=== PATIENT | female | born 1930 | race Caucasian/White ===

== ENCOUNTER 2017-09-07 12:43 | Inpatient (IN) | payer MEDICARE, OTHER ==
--- NOTE | 2017-09-07 13:20 | ED Physician Chart ---
ED Chief Complaint/HPI - Patient Information Date Seen:: 09/07/17 Time Seen:: 13:09 Chief Complaint:: NAUSEA X 2 MO AND ABD PAIN X3 DAYS History of Present Illness:: THIS PATIENT HAS HAD NAUSEA FOR 2 MONTHS WITHOUT ASSOCIATED VOMITING. SHE DENIES ANY RECENT DIARRHEA OR CONSTIPATION. SHE HAS BEEN EXPERIENCING MILD INTERMITTENT PAINS IN THE LEFT LOWER QUAD WHICH RADIATE INTO THE LT LOWER BACK FOR 3 DAYS. SHE RATES THE PAIN 2 /10 SEVERITY AND EATING GREASY FOODS MAKE THE PAIN WORSE. NO RELIEVING FACTORS. THE PT HAS ALSO HAD A NON-PRODUCTIVE COUGH FOR 2 MONTHS. SHE ALSO CONPLAINS OF PAIN IN THE RT SHOULD AND HAS BEEN TOLD SHE HAS ARTHRITIS THERE. SOME TIME AGO THE PT WAS DIAGNOSED HAVING A GASTRIC ULCE BY HER DOCTOR FROM THE PAST. SHE HAS FREQUENT EPISODES OF VOIDING LARGE VOLUMES OF URINE. PT DENIES DYSURIA AND HEMATURIA. THE PT HAS GENERALIZED MUSCLE AND BONE PAINS WITHOUT ASSOCIATED FEVER OR CHILLS. Allergies:: Allergies Allergy/AdvReac Type Severity Reaction Status Date / Time aspirin Allergy Verified 09/07/17 13:02 codeine Allergy Verified 09/07/17 13:02 Penicillins Allergy Verified 09/07/17 13:02 Historian:: Patient Review:: Nurse's Note Reviewed ED Review of Systems - Review of Systems General/Constitutional: No fever, No chills, Weakness Skin: No skin lesions, No rash Head: No headache, No light-headedness Eyes: No loss of vision, No diplopia ENT: No earache, No sore throat, No tinnitus Neck: No neck pain, No swelling, No thyromegaly, No stiffness, No mass noted Cardio Vascular: No chest pain, No edema Pulmonary: No SOB, Cough, No sputum, No wheezing GI: Nausea, No vomiting, No diarrhea, Pain, No hematochezia, No constipation, No hematemesis G/U: No dysuria, Frequency, No hematuria, No nacturia Crust Sorter: No abnormal vaginal bleed Musculoskeletal: Bone or joint pain, Muscle pain Endocrine: Polyuria, No polydipsia Psychiatric: Depression, No suicidal ideation, No homicidal ideation Hematopoietic: No bruising, No lymphadenopathy Allergic/Immuno: No urticaria, No angioedema Neurological: No syncope, No focal symptoms, Weakness, No headache, No seizure, No confusion, No vertigo Family Medical History - Family Member Mother Sister History Unknown: Yes ED Physical Exam - Physical Examination General/Constitutional: Awake, Well-developed, well-nourished, Alert Other Gen/Cons comments:: MILD DISTRESS FROM COMPLAINED OF ABD PAIN AND NAUSEA. Head: Atraumatic Eyes: Lids, conjuctiva normal, PERRL, EOMI Other Eyes comments:: VERY PROMINANT ARCUS BOTH EYES. Skin: Nl inspection, No rash, No ecchymosis Other Skin comments:: TATOOS OVER RT SIDE OF FACE TO COVER UP BROWN SPOTS. ENMT: External ears, nose nl, TM canals nl, Nasal exam nl, Lips, teeth, gums nl , Oropharynx nl, Tonsils nl Other ENMT comments:: Surprisingly good teeth. Neck: Nontender, No JVD, No nuchal rigidity, No bruit, No mass, No stridor Respiratory: Nl effort/Exclusion, Clear to Auscultation, No Wheeze/Rhonchi/Rales Cardio Vascular: No murmur, gallop, rubs, NL S1 S2 Other Cardio Vascular comments:: Good peripheral pulses in all 4 extremities. GI: No organomegaly, Normal BS's, Nondistended, No mass/bruits, No McBurney tenderness Other GI comments:: Patient has a hernia below the umbilicus on the right side. : No CVA tenderness Extremities: No tenderness or effusion, Full ROM, normal strength in all extremities, No edema Neuro/Psych: Alert/oriented, Normal sensory exam, Normal motor strength, Judgement/insight normal, Mood normal, No focal deficits Other Neuro/Psych comments:: Patient uses walker to get around in the gait was not tested in the emergency department. ED Labs/Radiology/EKG Results - Lab Results Results: Laboratory Results - last 24 hr 09/08/17 09/08/17 09/08/17 05:55 05:55 05:55 WBC 5.0 D RBC 3.55 L Hgb 11.4 L Hct 33.4 L MCV 94.2 MCH 32.2 H MCHC Differential 34.2 RDW 12.1 Plt Count 207 MPV 8.1 Neutrophils % 46.0 Lymphocytes % 33.6 Monocytes % 13.0 H Eosinophils % 7.0 H Basophils % 0.4 Sodium 137 Potassium 4.2 Chloride 104 Carbon Dioxide 25.6 Anion Gap 11.6 BUN 21 Creatinine 0.8 Est GFR ( Amer) TNP Est GFR (Non-Af Amer) TNP BUN/Creatinine Ratio 26.3 Glucose 108 H Calcium 9.5 Triglycerides 107 Cholesterol 213 H LDL Cholesterol Direct 146 HDL Cholesterol 57 TSH 6.51 H LABORATORY INTERPRETATION: THE CBC WAS UNREMARKABLE WITH NO LEUKOCYTOSIS OR SIGNIFICANT ANEMIA. LABORATORY STUDIES SHOWED ELECTROLYTES ALL WITHIN NORMAL LIMITS INCLUDING THE SODIUM, POTASSIUM, CHLORIDE, BICARB AND ANION GAP. PATIENT' S KIDNEY FUNCTION WAS NORMAL. GLUCOSE WAS MINIMALLY ELEVATED AT 108. RADIOLOGY RESULTS: CT SCAN OF THE ABDOMEN WAS POSITIVE FOR DIVERTICULOSIS WITH NO DIVERTICULITIS. NO ACUTE SURGICAL PROBLEMS NOTED. ED Assessment - Assessment General Assessment: CASE SUMMARY: THIS 87-YEAR-OLD FEMALE PRESENTS WITH TWO MONTHS OF NAUSEA AND NO ASSOCIATED VOMITING OR DIARRHEA. OVER THE PAST THREE DAYS SHE HAS DEVELOPED MILD ABDOMINAL DISCOMFORT IN THE LEFT LOWER QUADRANT. ON PHYSICAL EXAMINATION SHE HAS MILD TENDERNESS WITH NO ASSOCIATED REBOUND REGARDING IN THE LEFT LOWER QUADRANT. THERE IS A NON-INCARCERATED HERNIA RIGHT OF THE UMBILICUS. I'LL SOUNDS WERE NORMAL AND THERE WAS NO DISTENTION OR MASSES NOTED. CT SCAN OF THE ABDOMEN WAS POSITIVE FOR DIVERTICULOSIS WITH NO DIVERTICULITIS OR OTHER ACUTE SURGICAL PROBLEMS. PATIENT HAD A CBC WITH NO LEUKOCYTOSIS AND NO SIGNIFICANT ANEMIA. THE CASE WAS DISCUSSED WITH DR. HSIEH AND THE PATIENT WILL BE ADMITTED TO A MEDICAL BED FOR FURTHER DIAGNOSTIC EVALUATION AND TREATMENT INDICATED. MDM DDX ABD PAIN IN AN ELDERLY FEMALE: NOT BOWEL PERFORATION BASED ON NEGATIVE CT SCAN. NOT ISCHEMIC BOWEL DISEASE BASED ON CT SCAN OF THE ABDOMEN AND THE PATIENT'S RELATIVELY MILD ABDOMINAL PAIN. FURTHERMORE THERE WAS NO LEUKOCYTOSIS. NO DIVERTICULITIS BASED ON NEGATIVE CT SCAN. NO INCARCERATED HERNIAS BASED ON NEGATIVE CT SCAN. MYOCARDIAL ISCHEMIA UNLIKELY BASED ON THE LOCATION OF THE PATIENT'S PAIN AND TENDERNESS. ED Septic Shock - . Is Septic Shock (SBP<90, OR Lactate>4 mmol\L) present?: No ED Reassessment (Disposition) - Reassessment Reassessment Condition:: Unchanged - Diagnosis Diagnosis:: DIVERTICULOSIS,, ANXIETY, DEPRESSION, INSOMNIA. - Patient Disposition Discharge/Transfer:: Acute Care w/in this hosp Accepting Physician:: DR. GR ED Discharge Plan - Patient Disposition Admit/Discharge/Transfer: Acute Care w/in this hosp Condition at Disposition: Stable
[2017-09-07] MEDS ORDERED: Sodium Chloride 0.9% 1,000 ML IV ONE (14:15)
[2017-09-07 14:41] LABS: % BASOPHILS 0.3 % (0.0-2.0); % EOSINOPHILS 5.9 % (0.0-5.0); % LYMPHOCYTES 30.9 % (20.0-50.0); % MONOCYTES 11.7 % (2.0-10.0); % NEUTROPHILS 51.2 % (40.0-80.0); EOSINOPHILE ABSOLUTE 0.4 Th/cmm (0.1-0.4); HEMATOCRIT 36.7 % (41.0-60); HEMOGLOBIN 12.5 gm/dL (12-16); LYMPHOCYTE ABSOLUTE 2.3 Th/cmm (1.5-3.0); MEAN CELL VOLUME 95.3 fl (81-100); MEAN CORPUSCULAR HEMOGLOBIN 32.4 pg (27.0-31.0); MEAN PLATELET VOLUME 7.9 fl; MONOCYTE ABSOLUTE 0.9 Th/cmm (0.3-1.0); NEUTROPHILE ABSOLUTE 3.7 Th/cmm (1.8-8.0); PLATELET COUNT 210 Th/cmm (150-400); RED BLOOD COUNT 3.85 Mil/cmm (3.80-5.20); RED CELL DISTRIBUTION WIDTH 12.3 % (11.5-20.0); WHITE BLOOD COUNT 7.3 Th/cmm (4.8-10.8)
[2017-09-07 15:00] LABS: URINE MICROSCOPIC INDICATED? YES; URINE SOURCE RANDOM
[2017-09-07 15:05] LABS: URINE BILIRUBIN NEGATIVE (NEGATIVE); URINE BLOOD NEGATIVE (NEGATIVE); URINE GLUCOSE (UA) NEGATIVE (NEGATIVE); URINE KETONE NEGATIVE (NEGATIVE); URINE LEUKOCYTE ESTERASE NEGATIVE (NEGATIVE); URINE NITRATE NEGATIVE (NEGATIVE); URINE PROTEIN NEGATIVE (NEGATIVE); URINE UROBILINOGEN 0.2 E.U./dL (0.2 - 1.0)
[2017-09-07 15:19] LABS: ALB/GLOB RATIO 1.6 (1.0-1.8); ALBUMIN 4.4 gm/dL (3.7-5.3); ALKALINE PHOSPHATASE 67 U/L (34-104); ANION GAP 12.5 (7.0-16.0); BILIRUBIN,TOTAL 0.3 mg/dL (0.3-1.0); BUN - UREA NITROGEN 19 mg/dL (7-25); CALCIUM SERUM 10.1 mg/dL (8.6-10.3); CARBON DIOXIDE 23.6 mEq/L (21.0-31.0); CHLORIDE 100 mEq/L (98-107); CREATININE - SERUM 0.7 mg/dL (0.6-1.2); GLUCOSE 96 mg/dL (70-105); LIPASE 27 U/L (11-82); POTASSIUM SERUM 4.1 mEq/L (3.5-5.1); SGOT 22 U/L (13-39); SGPT/ALT 14 U/L (7-52); SODIUM SERUM 132 mEq/L (136-145); TOTAL PROTEIN,SERUM 7.1 gm/dL (6.0-8.3)
[2017-09-07 15:27] LABS: URINE CLARITY CLEAR (CLEAR); URINE COLOR YELLOW
[2017-09-07 15:29] LABS: URINE BACTERIA NONE SEEN /hpf (NONE SEEN); URINE EPITHELIAL CELLS NONE SEEN /lpf (FEW); URINE RBC NONE SEEN /hpf (0-5); URINE WBC NONE SEEN /hpf (0-5)
[2017-09-07] MEDS ORDERED: IOHEXOL 300mgI/mL 100 ML VIAL ONE (18:03)
[2017-09-07] MEDS ORDERED: Acetaminophen 500 MG TAB PO PRN (19:13)
[2017-09-07] MEDS ORDERED: Magnesium Hydroxide (MOM) 30 mL UDC PO PRN (19:13)
[2017-09-07] MEDS ORDERED: Non-Formulary Item 1 EA (Melatonin [Melatonin] 6 MG) PO PRN (19:13)
[2017-09-07] MEDS ORDERED: Non-Formulary Item 1 EA (Ondansetron Hcl [Zofran*] 4 MG) PO PRN (19:13)
[2017-09-07] MEDS ORDERED: Fleet Enema 135 mL RC PRN (19:13)
[2017-09-07] MEDS: Polyvinyl Alcohol Ophth Soln 15 mL Bottle EACH EYE SCH (22:09)
[2017-09-07] MEDS: Acetaminophen 500 MG TAB PO PRN (22:58)
[2017-09-07] MEDS: D5-0.45NS 1,000 ML IV SCH (23:52)
[2017-09-08 01:03] VITALS: BP 178/71
[2017-09-08 06:38] LABS: % BASOPHILS 0.4 % (0.0-2.0); % LYMPHOCYTES 33.6 % (20.0-50.0); EOSINOPHILE ABSOLUTE 0.3 Th/cmm (0.1-0.4); HEMATOCRIT 33.4 % (41.0-60); HEMOGLOBIN 11.4 gm/dL (12-16); LYMPHOCYTE ABSOLUTE 1.7 Th/cmm (1.5-3.0); MEAN CELL VOLUME 94.2 fl (81-100); MEAN CORPUSCULAR HEMOGLOBIN 32.2 pg (27.0-31.0); MEAN CORPUSCULAR HGB CONC 34.2 pg (28.0-36.0); MEAN PLATELET VOLUME 8.1 fl; MONOCYTE ABSOLUTE 0.6 Th/cmm (0.3-1.0); NEUTROPHILE ABSOLUTE 2.4 Th/cmm (1.8-8.0); PLATELET COUNT 207 Th/cmm (150-400); RED BLOOD COUNT 3.55 Mil/cmm (3.80-5.20); RED CELL DISTRIBUTION WIDTH 12.1 % (11.5-20.0)
[2017-09-08] MEDS: Levothyroxine 0.05 Mg Tab PO SCH (06:44)
[2017-09-08 07:11] LABS: ANION GAP 11.6 (7.0-16.0); BUN - UREA NITROGEN 21 mg/dL (7-25); CALCIUM SERUM 9.5 mg/dL (8.6-10.3); CARBON DIOXIDE 25.6 mEq/L (21.0-31.0); CHLORIDE 104 mEq/L (98-107); CHOLESTEROL 213 mg/dL (<200); CREATININE - SERUM 0.8 mg/dL (0.6-1.2); GLUCOSE 108 mg/dL (70-105); HDL -HIGH DENSITY LIPOPROTEIN 57 mg/dL (23-92); POTASSIUM SERUM 4.2 mEq/L (3.5-5.1); SODIUM SERUM 137 mEq/L (136-145); TRIGLYCERIDES 107 mg/dL (<150)
--- NOTE | 2017-09-08 07:58 | Diagnostic Imaging Report ---
CT abdomen and pelvis with intravenous contrast Indication: Right upper quadrant pain Comparison: None, Technique: Axial images were obtained from the lung bases to the bilateral proximal femurs with IV contrast. Coronal reconstructions were made. total DLP: 435, CTDI10.4 FINDINGS: Hypoventilatory and atelectatic changes of the lung bases are noted. There is focal fat-containing diaphragmatic hernia seen along the left posterior hemidiaphragm. No evidence of focal hepatic lesions. No radiopaque gallstones identified. No focal splenic lesions. Splenic artery calcifications are noted. No focal pancreatic or adrenal lesions. 1.2 cm right renal cyst is noted. Additional low-density lesions are seen to small to characterize but suggestive of cysts. No hydronephrosis. Mildly distended urinary bladder is noted. Diverticulosis is noted without evidence of diverticulitis. Appendix is not well-visualized. Nonspecific fluid-filled loops of small bowel are noted without evidence of bowel obstruction. There is minimal haziness of the mesenteric fat planes. Diffuse atherosclerotic vascular disease is seen with tortuous aorta. No evidence of an aneurysm. Broad-based left posterior flank fat-containing hernia is noted. Degenerative changes of the spine and pelvis are noted with mild scoliosis. IMPRESSION: Diverticulosis without evidence of diverticulitis. Minimal haziness of the mesenteric fat planes. Underlying mild mesenteritis cannot be excluded. No evidence of bowel obstruction. Distended urinary bladder. No hydronephrosis. Fat-containing left posterior diaphragmatic hernia. There is also an additional broad-based left posterior flank fat-containing hernia. Diffuse atherosclerotic vascular disease.
[2017-09-08] MEDS ORDERED: IBUPROFEN 200 MG PO SCH (09:00)
[2017-09-08] MEDS ORDERED: Non-Formulary Item 1 EA (Cranberry Fruit Concentrate [Cranberry] 450 MG) PO SCH (09:00)
[2017-09-08] MEDS: Polyvinyl Alcohol Ophth Soln 15 mL Bottle EACH EYE SCH ×3 (09:05→21:18)
[2017-09-08] MEDS ORDERED: VTE Chemical Prophylaxis Screen/Admission MC PRN (11:05)
--- NOTE | 2017-09-08 11:57 | History and Physical ---
History of Present Illness - HPI Chief Complaint: abdominal pain HPI: This is a 87 year old female who is a resident of [facility] who has a 2 month history of nausea and abdominal pain. According to daughter at bedside patient has been having intermittent left lower quadrant pain that is worse when she bends down, patient denies any constipation or any diarrhea at the snf. Due to the increase in abdominal pain patient is now admitted to the medsurg unit. . Vital Signs: Last Vital Signs Temp 96.4 F 09/08/17 08:35 Pulse 53 09/08/17 08:35 Resp 20 09/08/17 10:14 BP 129/57 09/08/17 08:59 Pulse Ox 99 09/08/17 08:35 Past Medical History Other History: pna weakness cad bradycardia gerd Family Medical History - Family Member Mother Sister History Unknown: Yes Social History Smoke: No Alcohol: None Drugs: None Lives: [facility] - Medications Home Medications: Home Medication Medication Instructions Recorded Type Acetaminophen [Pain Relief] 1,000 mg PO Q4H PRN 09/07/17 History Cranberry Fruit Concentrate 450 mg PO DAILY 09/07/17 History [Cranberry] Dextran 70/Hypromellose 1 each OP TID 09/07/17 History [Artificial Tears] Famotidine [Pepcid] 20 mg PO DAILY 09/07/17 History Fleet Enema [Fleet Enema] 135 ml RC Q48H PRN 09/07/17 History Fluoxetine HCl [Prozac] 20 mg PO DAILY 09/07/17 History Gabapentin [Neurontin] 100 mg PO TID 09/07/17 History Ibuprofen 200 mg PO BID 09/07/17 History Lamotrigine 25 mg PO DAILY 09/07/17 History Levothyroxine [Synthroid] 0.05 mg PO QDAC 09/07/17 History Loratadine [Claritin] 10 mg PO DAILY PRN 09/07/17 History Magnesium Hydroxide [Milk of 30 ml PO DAILY PRN 09/07/17 History Magnesia] Melatonin 6 mg PO HS PRN 09/07/17 History Metoprolol Succinate [Toprol Xl] 25 mg PO DAILY 09/07/17 History Mylanta 30 ml PO Q6H PRN 09/07/17 History Ondansetron HCl [Zofran*] 4 mg PO Q6H PRN 09/07/17 History - Allergies Allergies/Adverse Reactions: Allergies Allergy/AdvReac Type Severity Reaction Status Date / Time aspirin Allergy Verified 09/07/17 13:02 codeine Allergy Verified 09/07/17 13:02 Penicillins Allergy Verified 09/07/17 13:02 Review of Systems - Review of Systems Constitutional: Report: No Significant Eyes: Report: No Significant ENT: Report: No Significant Respiratory: Report: No Significant Cardiovascular: Report: No Significant Gastrointestinal: Report: Abdominal Pain Genitourinary: Report: No Significant Musculoskeletal: Report: No Significant Skin: Report: No Significant Neurological: Report: No Significant Physical Exam - Physical Exam HEENT: Report: Ears Nose Throat within normal limits Neck: Report: Within normal limits Cardiovascular Systems: Report: +s1/s2 noted, Regular, Rate and Rhythm Respiratory: Report: Breath Sounds are within normal limits Abdomen: Report: Bowel Sounds are within normal limits, Other (mildly distended) Skin: Report: Color of skin is within normal limits Neuro/Psych: Report: Mood affect is within normal limits - Lab Results All Lab Results last 24 hours: Laboratory Results - last 24 hr 09/08/17 09/08/17 09/08/17 05:55 05:55 05:55 WBC 5.0 D RBC 3.55 L Hgb 11.4 L Hct 33.4 L MCV 94.2 MCH 32.2 H MCHC Differential 34.2 RDW 12.1 Plt Count 207 MPV 8.1 Neutrophils % 46.0 Lymphocytes % 33.6 Monocytes % 13.0 H Eosinophils % 7.0 H Basophils % 0.4 Sodium 137 Potassium 4.2 Chloride 104 Carbon Dioxide 25.6 Anion Gap 11.6 BUN 21 Creatinine 0.8 Est GFR ( Amer) TNP Est GFR (Non-Af Amer) TNP BUN/Creatinine Ratio 26.3 Glucose 108 H Calcium 9.5 Triglycerides 107 Cholesterol 213 H LDL Cholesterol Direct 146 HDL Cholesterol 57 TSH 6.51 H - Assessment Assessment: Current Active Problems Problem Status Onset N/V, COUGH AND CONGESTION, WEAKNESS Acute abdominal pain intractable nausea - Plan Plan: gi consultation u/s abdominal ivf for hydration empiric ivabx continue current orders
--- NOTE | 2017-09-08 14:04 | Diagnostic Imaging Report ---
Abdominal ultrasound HISTORY: Pain The liver exhibits a homogeneous parenchyma. No focal lesions. The gallbladder appears normal. No calculi are seen. The common bile duct is not clearly visualized due to bowel gas. No obvious abnormality seen in the region of the pancreas. The right kidney is slightly decreased in size (7.7 x 4.0 x 4.0 cm). A 1.57 cm sonolucent lesion is seen within the lower pole consistent with a cyst. The left kidney is also decreased in size (7.5 x 4.1 x 3.9 cm). No focal lesions. No hydronephrosis. No other definite retroperitoneal or intra-abdominal abnormalities. IMPRESSION: 1. Limited exam due to bowel gas 2. Decreased renal sizes bilaterally. No focal lesions or hydronephrosis
[2017-09-08] MEDS: metroNIDAZOLE 500mg/NS 100mL 500 MG/100 ML BAG IV SCH ×2 (14:22→21:19)
[2017-09-08] MEDS: POLYETHYLENE GLYCOL 3350 17 GM PACK PO SCH (21:18)
[2017-09-08] MEDS: D5-0.45NS 1,000 ML IV SCH (21:24)
[2017-09-08] MEDS: Maalox 30 mL Cup PO PRN (22:57)
[2017-09-09] MEDS: metroNIDAZOLE 500mg/NS 100mL 500 MG/100 ML BAG IV SCH ×3 (06:01→22:41)
[2017-09-09] MEDS: Levothyroxine 0.05 Mg Tab PO SCH (06:58)
[2017-09-09 07:09] LABS: % BASOPHILS 0.2 % (0.0-2.0); % EOSINOPHILS 6.6 % (0.0-5.0); % MONOCYTES 13.2 % (2.0-10.0); EOSINOPHILE ABSOLUTE 0.4 Th/cmm (0.1-0.4); HEMOGLOBIN 10.5 gm/dL (12-16); LYMPHOCYTE ABSOLUTE 1.8 Th/cmm (1.5-3.0); MEAN CELL VOLUME 93.3 fl (81-100); MEAN CORPUSCULAR HEMOGLOBIN 31.7 pg (27.0-31.0); MEAN PLATELET VOLUME 8.3 fl; MONOCYTE ABSOLUTE 0.7 Th/cmm (0.3-1.0); NEUTROPHILE ABSOLUTE 2.6 Th/cmm (1.8-8.0); PLATELET COUNT 194 Th/cmm (150-400); RED BLOOD COUNT 3.32 Mil/cmm (3.80-5.20); RED CELL DISTRIBUTION WIDTH 11.9 % (11.5-20.0); WHITE BLOOD COUNT 5.5 Th/cmm (4.8-10.8)
--- NOTE | 2017-09-09 07:32 | Consultation ---
DATE OF CONSULTATION: 09/08/2017 HISTORY OF PRESENT ILLNESS: An 87-year-old female resident of [facility], 2-month history of nausea and abdominal pain, left lower quadrant pain. On [id number] the patient AO to name, place. She has a general idea why she is here, complaining of pain, attesting to some bouts of sadness, depression and especially when thinking about her past childhood in [place] and leaving her friends there, attest to clinical okay, sleep with medications, okay appetite, some bouts of sadness and anxiety, but she notes that she would like to get better and she notes that she is in better spirits today. PAST PSYCHIATRIC HISTORY: She states that many years ago, she went to a bout of depression, but she states that this was about 50 years ago. No suicide history. FAMILY HISTORY: Noncontributory. SOCIAL HISTORY: Born in [place]. Currently living in a correction facility. Currently , 5 children. No drugs. No alcohol, tobacco, good family involvement. MEDICATIONS: Reviewed. MENTAL STATUS EXAMINATION: Stated age. Fair eye contact. Speech within normal limits, Sinhala only, relay shop tester utilized. Mood "okay." Affect broad. Thought processes were grossly engaged, fairly oriented to name, place, situation, year, month and day of the week. No psychotic symptoms noted. No SI, no HI. Insight fair. PROVISIONAL DIAGNOSIS: Major depression, recurrent, unspecified. Also, anxiety, unspecified. MEDICAL: Please see full H and P. RECOMMENDATIONS AND PLAN: The patient fairly stable from a psychiatric perspective, seems to be in fairly good spirits with good support. No 5150 criteria. We will monitor and follow up. JOB# [id number]
[2017-09-09 07:33] LABS: ALB/GLOB RATIO 1.7 (1.0-1.8); ALBUMIN 3.6 gm/dL (3.7-5.3); ALKALINE PHOSPHATASE 51 U/L (34-104); ANION GAP 9.3 (7.0-16.0); BILIRUBIN,TOTAL 0.3 mg/dL (0.3-1.0); BUN - UREA NITROGEN 20 mg/dL (7-25); CALCIUM SERUM 9.1 mg/dL (8.6-10.3); CARBON DIOXIDE 23.8 mEq/L (21.0-31.0); CHLORIDE 104 mEq/L (98-107); CREATININE - SERUM 0.8 mg/dL (0.6-1.2); GLUCOSE 102 mg/dL (70-105); POTASSIUM SERUM 4.1 mEq/L (3.5-5.1); SGOT 18 U/L (13-39); SGPT/ALT 12 U/L (7-52); SODIUM SERUM 133 mEq/L (136-145); TOTAL PROTEIN,SERUM 5.7 gm/dL (6.0-8.3)
[2017-09-09] MEDS: Polyvinyl Alcohol Ophth Soln 15 mL Bottle EACH EYE SCH ×3 (08:58→20:36)
[2017-09-09] MEDS: Lactobacillus Rhamnosus GG 15 Billion CFU CAP.SPRINK PO SCH (08:58)
[2017-09-09] MEDS: POLYETHYLENE GLYCOL 3350 17 GM PACK PO SCH (08:59)
--- NOTE | 2017-09-09 11:44 | General Progress Note ---
Subjective - Review of Systems Events since last encounter: patient is depressed but in no acute distress Objective - Results Result Diagrams: 09/09/17 06:30 09/09/17 06:30 Recent Labs: Laboratory Last Values WBC 5.5 Th/cmm (4.8-10.8) 09/09/17 06:30 RBC 3.32 Mil/cmm (3.80-5.20) L 09/09/17 06:30 Hgb 10.5 gm/dL (12-16) L 09/09/17 06:30 Hct 31.0 % (41.0-60) L 09/09/17 06:30 MCV 93.3 fl (81-100) 09/09/17 06:30 MCH 31.7 pg (27.0-31.0) H 09/09/17 06:30 MCHC Differential 34.0 pg (28.0-36.0) 09/09/17 06:30 RDW 11.9 % (11.5-20.0) 09/09/17 06:30 Plt Count 194 Th/cmm (150-400) 09/09/17 06:30 MPV 8.3 fl 09/09/17 06:30 Neutrophils % 47.0 % (40.0-80.0) 09/09/17 06:30 Lymphocytes % 33.0 % (20.0-50.0) 09/09/17 06:30 Monocytes % 13.2 % (2.0-10.0) H 09/09/17 06:30 Eosinophils % 6.6 % (0.0-5.0) H 09/09/17 06:30 Basophils % 0.2 % (0.0-2.0) 09/09/17 06:30 Sodium 133 mEq/L (136-145) L 09/09/17 06:30 Potassium 4.1 mEq/L (3.5-5.1) 09/09/17 06:30 Chloride 104 mEq/L (98-107) 09/09/17 06:30 Carbon Dioxide 23.8 mEq/L (21.0-31.0) 09/09/17 06:30 Anion Gap 9.3 (7.0-16.0) 09/09/17 06:30 BUN 20 mg/dL (7-25) 09/09/17 06:30 Creatinine 0.8 mg/dL (0.6-1.2) 09/09/17 06:30 Est GFR ( Amer) TNP 09/09/17 06:30 Est GFR (Non-Af Amer) TNP 09/09/17 06:30 BUN/Creatinine Ratio 25.0 09/09/17 06:30 Glucose 102 mg/dL (70-105) 09/09/17 06:30 Calcium 9.1 mg/dL (8.6-10.3) 09/09/17 06:30 Total Bilirubin 0.3 mg/dL (0.3-1.0) 09/09/17 06:30 AST 18 U/L (13-39) 09/09/17 06:30 ALT 12 U/L (7-52) 09/09/17 06:30 Alkaline Phosphatase 51 U/L (34-104) 09/09/17 06:30 Total Protein 5.7 gm/dL (6.0-8.3) L 09/09/17 06:30 Albumin 3.6 gm/dL (3.7-5.3) L 09/09/17 06:30 Globulin 2.1 gm/dL 09/09/17 06:30 Albumin/Globulin Ratio 1.7 (1.0-1.8) 09/09/17 06:30 Triglycerides 107 mg/dL (<150) 09/08/17 05:55 Cholesterol 213 mg/dL (<200) H 09/08/17 05:55 LDL Cholesterol Direct 146 mg/dL (75-193) 09/08/17 05:55 HDL Cholesterol 57 mg/dL (23-92) 09/08/17 05:55 Amylase 40 U/L (29-103) 09/07/17 14:35 Lipase 27 U/L (11-82) 09/07/17 14:35 TSH 6.51 uIU/ml (0.34-5.60) H 09/08/17 05:55 Urine Source RANDOM 09/07/17 13:30 Urine Color YELLOW 09/07/17 13:30 Urine Clarity CLEAR (CLEAR) 09/07/17 13:30 Urine pH 7.0 (4.6 - 8.0) 09/07/17 13:30 Ur Specific [place] <= 1.005 (1.005-1.030) 09/07/17 13:30 Urine Protein NEGATIVE mg/dL (NEGATIVE) 09/07/17 13:30 Urine Glucose (UA) NEGATIVE mg/dL (NEGATIVE) 09/07/17 13:30 Urine Ketones NEGATIVE mg/dL (NEGATIVE) 09/07/17 13:30 Urine Blood NEGATIVE (NEGATIVE) 09/07/17 13:30 Urine Nitrate NEGATIVE (NEGATIVE) 09/07/17 13:30 Urine Bilirubin NEGATIVE (NEGATIVE) 09/07/17 13:30 Urine Urobilinogen 0.2 E.U./dL (0.2 - 1.0) 09/07/17 13:30 Ur Leukocyte Esterase NEGATIVE (NEGATIVE) 09/07/17 13:30 Urine RBC NONE SEEN /hpf (0-5) 09/07/17 13:30 Urine WBC NONE SEEN /hpf (0-5) 09/07/17 13:30 Ur Epithelial Cells NONE SEEN /lpf (FEW) 09/07/17 13:30 Urine Bacteria NONE SEEN /hpf (NONE SEEN) 09/07/17 13:30 - Physical Exam Vitals and I&O: Vital Signs Temp 96.4 F 09/09/17 10:49 Pulse 56 09/09/17 10:49 Resp 18 09/09/17 10:49 BP 136/53 09/09/17 10:49 Pulse Ox 99 09/09/17 10:49 Intake & Output 09/08/17 09/09/17 09/09/17 18:59 06:59 18:59 Intake Total 100 1257.5 Output Total 4 Balance 100 1253.5 Weight (lbs) 58.967 kg Intake: Intake, IV Amount 100 777.5 D5-0.45NS 1,000 ml @ 50 677.5 mls/hr IV .Q20H JUAN JOSÉ Rx#: [id number] metroNIDAZOLE 500mg/NS 100 100 100mL 500 mg In 100 ml @ 100 mls/hr IV Q8H [facility] Rx# :[id number] Oral 480 Output: Urine 4 Other: # Bowel Movements 1 Stool Characteristics Soft Soft Soft Active Medications: Current Medications Acetaminophen (Tylenol Extra Strength) 500 mg PO Q4H PRN PRN Reason: MILD PAIN Stop: 11/06/17 19:12 Last Admin: 09/07/17 22:58 Dose: 500 mg Al Hydrox/Mg Hydrox/Simethicone (Maalox) 30 ml PO Q6H PRN PRN Reason: Indigestion Last Admin: 09/08/17 22:57 Dose: 30 ml Artificial Tears (Artificial Tears Ophth Soln) 1 drop EACH EYE TID [facility] Stop: 11/06/17 20:59 Last Admin: 09/09/17 08:58 Dose: 1 drop Famotidine (Pepcid) 20 mg PO DAILY JUAN JOSÉ Stop: 11/07/17 08:59 Last Admin: 09/09/17 08:58 Dose: 20 mg Fluoxetine HCl (Prozac) 20 mg PO DAILY JUAN JOSÉ PRN Reason: Protocol Stop: 11/07/17 08:59 Last Admin: 09/09/17 08:58 Dose: 20 mg Gabapentin (Neurontin) 100 mg PO TID [facility] Stop: 11/06/17 20:59 Last Admin: 09/09/17 08:58 Dose: 100 mg Dextrose/Sodium Chloride (D5-0.45ns) 1,000 mls @ 50 mls/hr IV .Q20H [facility] Stop: 11/06/17 19:37 Last Admin: 09/08/17 21:24 Dose: 50 mls/hr Metronidazole (Flagyl) 500 mg in 100 mls @ 100 mls/hr IV Q8H [facility] Stop: 11/07/17 13:59 Last Admin: 09/09/17 06:01 Dose: 100 mls/hr Ibuprofen (Advil) 200 mg PO BID PRN PRN Reason: Pain (Moderate) Stop: 11/06/17 22:44 Lactobacillus Rhamnosus (Culturelle 15b) 1 each PO DAILY [facility] Stop: 11/08/17 08:59 Last Admin: 09/09/17 08:58 Dose: 1 each Lamotrigine (Lamictal) 25 mg PO DAILY [facility] Stop: 11/07/17 08:59 Last Admin: 09/09/17 08:58 Dose: 25 mg Levothyroxine Sodium (Synthroid) 0.05 mg PO QDAC [facility] Stop: 11/07/17 07:29 Last Admin: 09/09/17 06:58 Dose: 0.05 mg Loratadine (Claritin) 10 mg PO DAILY PRN PRN Reason: ALLERGY ITCHING Stop: 11/06/17 19:12 Last Admin: 09/08/17 21:58 Dose: 10 mg Magnesium Hydroxide (Milk Of Magnesia) 30 ml PO DAILY PRN PRN Reason: Constipation Stop: 11/06/17 19:12 Metoprolol Succinate (Toprol Xl) 25 mg PO DAILY JUAN JOSÉ Stop: 11/07/17 08:59 Last Admin: 09/09/17 08:58 Dose: 25 mg Miscellaneous (Melatonin [Melatonin]) 6 mg PO HS PRN PRN Reason: Insomnia Miscellaneous (Vte Chemical Prophylaxis Screen/ Admission) 1 ea [facility] PRN PRN PRN Reason: PROTOCOL Stop: 11/07/17 11:04 Ondansetron HCl (Zofran) 4 mg IV Q6H PRN PRN Reason: Nausea / Vomiting Stop: 11/06/17 19:37 Last Admin: 09/07/17 22:59 Dose: 4 mg Polyethylene Glycol (Miralax) 17 gm PO DAILY JUAN JOSÉ Stop: 11/07/17 19:29 Last Admin: 09/09/17 08:59 Dose: 17 gm Sodium Phosphate (Fleet Enema) 135 ml RC Q48H PRN PRN Reason: IF MOM INEFFECTIVE Stop: 11/06/17 19:12 Assessment/Plan - Problem List Patient Problems: All Active Problems N/V, COUGH AND CONGESTION, WEAKNESS (Acute)
--- NOTE | 2017-09-09 16:37 | Consultation ---
DATE OF CONSULTATION: 09/08/2017 REASON FOR CONSULTATION: Abdominal pain and constipation. This consult obtained at the request of Dr. Reyna. HISTORY OF PRESENT ILLNESS: This is 87-year-old known to me for years. She was my patient for a long time before she goes to a correction. She always had abdominal pain. She had extensive workup, it was felt to be irritable bowel syndrome. She has also had history of constipation. The patient was admitted for possible pneumonia, now having constipation, abdominal pain. GI consult was called in for further evaluation. PAST MEDICAL HISTORY: Hypothyroidism and hypertension. SOCIAL HISTORY: Nonsmoker, nonalcoholic, non-IV drug abuser. FAMILY HISTORY: Noncontributory. ALLERGIES: ASPIRIN, CODEINE, and PENICILLIN. REVIEW OF SYSTEMS: No weight loss. No hematemesis, melena, or hematochezia. She had frequency and she has constipation. MEDICATIONS: The patient is on Tylenol, Maalox, Pepcid, Prozac, gabapentin, Advil, Lamictal, Synthroid, Claritin, milk of magnesia, Toprol, and Flagyl. PHYSICAL EXAMINATION: GENERAL: The patient is awake, oriented to self and place, in no acute distress. VITAL SIGNS: Blood pressure is 104/54, heart rate 59, respiratory rate 20, and temperature 97.3. HEAD AND NECK: Pupils reactive to light. Extraocular muscles could not be tested. Oral cavity, no lesion. NECK: Supple. CHEST: Good air entry. LUNGS: Clear to auscultation. CARDIOVASCULAR: Regular rate and rhythm. No murmur or gallop. ABDOMEN: Soft. Positive bowel sounds. Mild lower abdominal tenderness. There is possibility of a hernia on the right side. EXTREMITIES: Lower extremities, no edema. CENTRAL NERVOUS SYSTEM: Grossly nonfocal. LABORATORY DATA AND DIAGNOSTIC DATA: CBC showed hemoglobin of 11.4 and hematocrit 33.4. Chemistry unremarkable. X-rays unremarkable. IMPRESSION: An 87-year-old with abdominal pain and constipation. ASSESSMENT AND PLAN: 1. Abdominal pain, most probably irritable bowel syndrome, but there is an element of constipation as well. The patient is already getting some medications, so we will add MiraLax to that and then, we will add Culturelle. If needed, we can use a small dose of Elavil or a small dose of Bentyl. 2. Constipation. We will continue with what the patient is getting, which is milk of magnesium. We will add also MiraLax. Later if needed, will be on Amitiza, even though she is old, but we will see what can we do. 3. Other medical problems such as hypertension and hypothyroidism as per the Dr. Reyna. Thank you Dr. Reyna for allowing me to participate in the care of the patient. If you have any further questions, please let me know. JOB# [id number]
[2017-09-10] MEDS: D5-0.45NS 1,000 ML IV SCH (01:32)
--- NOTE | 2017-09-10 02:50 | Progress Notes ---
DATE: 09/09/2017 Chart reviewed and the patient interviewed. Also discussed the patient's condition with the staff and reviewed records and labs. The patient is Bengali speaking and the patient still has episodes of irritability and confusion. She also is still complaining of abdominal pain as well as slight nausea. She also still seems to be depressed and withdrawn. Otherwise, the patient denies any thoughts of suicide or homicide. She is complaining of a decrease in her sleep. ASSESSMENT: The patient is still depressed, but she denies thoughts of suicide. TREATMENT PLAN: Continue Prozac 20 mg every day and continue adjusting psychotropic medications and follow up with her medications and condition closely. [facility]# [id number]
[2017-09-10] MEDS: Levothyroxine 0.05 Mg Tab PO SCH (06:35)
[2017-09-10] MEDS: metroNIDAZOLE 500mg/NS 100mL 500 MG/100 ML BAG IV SCH ×3 (06:36→22:50)
--- NOTE | 2017-09-10 08:35 | Diagnostic Imaging Report ---
Right knee 3 views Indication: pain Comparison: none Findings: There is chondrocalcinosis. Mild degenerative changes are noted with minimal narrowing of the medial compartment. No evidence of acute fracture or joint effusion. Atherosclerosis is noted. Impression: No evidence of an acute fracture. Mild degenerative changes with chondrocalcinosis noted Atherosclerotic vascular disease. In the setting of trauma, if clinical symptoms persist and there is continued concern for an occult fracture, follow up exams in 5-7 days is suggested.
--- NOTE | 2017-09-10 08:36 | Diagnostic Imaging Report ---
Left knee 3 views Indication: pain Comparison: none Findings: Chondrocalcinosis is noted. Mild to moderate degenerative changes are noted including mild narrowing of the knee compartment. No evidence of an acute fracture or gross effusion. Atherosclerosis is noted. Impression: No evidence of an acute fracture. [id number] degenerative changes and chondrocalcinosis Atherosclerotic vascular disease. In the setting of trauma, if clinical symptoms persist and there is continued concern for an occult fracture, follow up exams in 5-7 days is suggested.
--- NOTE | 2017-09-10 08:38 | Diagnostic Imaging Report ---
Pelvis single view Indication: pain Comparison: none Findings: pp osteopenia is noted limiting the examination. No evidence of an acute fracture or dislocation. Mild degenerative changes of both hip joints are noted. Advanced degenerative changes lower lumbar spine are noted. Impression: No evidence of an acute fracture. Degenerative changes greatest in the lower lumbar spine. In the setting of trauma, if clinical symptoms persist and there is continued concern for an occult fracture, follow up exams in 5-7 days is suggested.
[2017-09-10] MEDS: Lactobacillus Rhamnosus GG 15 Billion CFU CAP.SPRINK PO SCH (10:13)
[2017-09-10] MEDS: POLYETHYLENE GLYCOL 3350 17 GM PACK PO SCH (10:17)
[2017-09-10] MEDS: Polyvinyl Alcohol Ophth Soln 15 mL Bottle EACH EYE SCH ×3 (10:17→22:51)
--- NOTE | 2017-09-10 10:29 | Diagnostic Imaging Report ---
Right shoulder 3 views Indication: pain Comparison: none Findings: There is anterior/inferior dislocation of the right shoulder. Degenerative changes are seen moderate to advanced at the AC joint with capsular calcifications. There may be a small Hill-Sachs lesion. Impression: Anterior/inferior right shoulder dislocation with possible small Hill-Sachs lesion. In the setting of trauma, if clinical symptoms persist and there is continued concern for an occult fracture, follow up exams in 5-7 days is suggested.
--- NOTE | 2017-09-10 16:22 | General Progress Note ---
Subjective - Review of Systems Events since last encounter: depressed in no distress Objective - Results Result Diagrams: 09/09/17 06:30 09/09/17 06:30 Recent Labs: Laboratory Last Values WBC 5.5 Th/cmm (4.8-10.8) 09/09/17 06:30 RBC 3.32 Mil/cmm (3.80-5.20) L 09/09/17 06:30 Hgb 10.5 gm/dL (12-16) L 09/09/17 06:30 Hct 31.0 % (41.0-60) L 09/09/17 06:30 MCV 93.3 fl (81-100) 09/09/17 06:30 MCH 31.7 pg (27.0-31.0) H 09/09/17 06:30 MCHC Differential 34.0 pg (28.0-36.0) 09/09/17 06:30 RDW 11.9 % (11.5-20.0) 09/09/17 06:30 Plt Count 194 Th/cmm (150-400) 09/09/17 06:30 MPV 8.3 fl 09/09/17 06:30 Neutrophils % 47.0 % (40.0-80.0) 09/09/17 06:30 Lymphocytes % 33.0 % (20.0-50.0) 09/09/17 06:30 Monocytes % 13.2 % (2.0-10.0) H 09/09/17 06:30 Eosinophils % 6.6 % (0.0-5.0) H 09/09/17 06:30 Basophils % 0.2 % (0.0-2.0) 09/09/17 06:30 Sodium 133 mEq/L (136-145) L 09/09/17 06:30 Potassium 4.1 mEq/L (3.5-5.1) 09/09/17 06:30 Chloride 104 mEq/L (98-107) 09/09/17 06:30 Carbon Dioxide 23.8 mEq/L (21.0-31.0) 09/09/17 06:30 Anion Gap 9.3 (7.0-16.0) 09/09/17 06:30 BUN 20 mg/dL (7-25) 09/09/17 06:30 Creatinine 0.8 mg/dL (0.6-1.2) 09/09/17 06:30 Est GFR ( Amer) TNP 09/09/17 06:30 Est GFR (Non-Af Amer) TNP 09/09/17 06:30 BUN/Creatinine Ratio 25.0 09/09/17 06:30 Glucose 102 mg/dL (70-105) 09/09/17 06:30 Calcium 9.1 mg/dL (8.6-10.3) 09/09/17 06:30 Total Bilirubin 0.3 mg/dL (0.3-1.0) 09/09/17 06:30 AST 18 U/L (13-39) 09/09/17 06:30 ALT 12 U/L (7-52) 09/09/17 06:30 Alkaline Phosphatase 51 U/L (34-104) 09/09/17 06:30 Total Protein 5.7 gm/dL (6.0-8.3) L 09/09/17 06:30 Albumin 3.6 gm/dL (3.7-5.3) L 09/09/17 06:30 Globulin 2.1 gm/dL 09/09/17 06:30 Albumin/Globulin Ratio 1.7 (1.0-1.8) 09/09/17 06:30 Triglycerides 107 mg/dL (<150) 09/08/17 05:55 Cholesterol 213 mg/dL (<200) H 09/08/17 05:55 LDL Cholesterol Direct 146 mg/dL (75-193) 09/08/17 05:55 HDL Cholesterol 57 mg/dL (23-92) 09/08/17 05:55 Amylase 40 U/L (29-103) 09/07/17 14:35 Lipase 27 U/L (11-82) 09/07/17 14:35 TSH 6.51 uIU/ml (0.34-5.60) H 09/08/17 05:55 Urine Source RANDOM 09/07/17 13:30 Urine Color YELLOW 09/07/17 13:30 Urine Clarity CLEAR (CLEAR) 09/07/17 13:30 Urine pH 7.0 (4.6 - 8.0) 09/07/17 13:30 Ur Specific [place] <= 1.005 (1.005-1.030) 09/07/17 13:30 Urine Protein NEGATIVE mg/dL (NEGATIVE) 09/07/17 13:30 Urine Glucose (UA) NEGATIVE mg/dL (NEGATIVE) 09/07/17 13:30 Urine Ketones NEGATIVE mg/dL (NEGATIVE) 09/07/17 13:30 Urine Blood NEGATIVE (NEGATIVE) 09/07/17 13:30 Urine Nitrate NEGATIVE (NEGATIVE) 09/07/17 13:30 Urine Bilirubin NEGATIVE (NEGATIVE) 09/07/17 13:30 Urine Urobilinogen 0.2 E.U./dL (0.2 - 1.0) 09/07/17 13:30 Ur Leukocyte Esterase NEGATIVE (NEGATIVE) 09/07/17 13:30 Urine RBC NONE SEEN /hpf (0-5) 09/07/17 13:30 Urine WBC NONE SEEN /hpf (0-5) 09/07/17 13:30 Ur Epithelial Cells NONE SEEN /lpf (FEW) 09/07/17 13:30 Urine Bacteria NONE SEEN /hpf (NONE SEEN) 09/07/17 13:30 - Physical Exam Vitals and I&O: Vital Signs Temp 97 F 09/10/17 04:00 Pulse 60 09/10/17 10:13 Resp 20 09/10/17 08:00 BP 156/50 09/10/17 10:13 Pulse Ox 96 09/10/17 04:00 Intake & Output 09/09/17 09/10/17 09/10/17 18:59 06:59 18:59 Intake Total 1200 600 Balance 1200 600 Weight (lbs) 58.967 kg Intake: Intake, IV Amount 1200 100 D5-0.45NS 1,000 ml @ 50 1000 mls/hr IV .Q20H [facility] Rx#: [id number] metroNIDAZOLE 500mg/NS 200 100 100mL 500 mg In 100 ml @ 100 mls/hr IV Q8H [facility] Rx# :[id number] Oral 500 Other: # Voids 4 # Bowel Movements 0 Stool Characteristics Soft Soft Soft Active Medications: Current Medications Acetaminophen (Tylenol Extra Strength) 500 mg PO Q4H PRN PRN Reason: MILD PAIN Stop: 11/06/17 19:12 Last Admin: 09/07/17 22:58 Dose: 500 mg Al Hydrox/Mg Hydrox/Simethicone (Maalox) 30 ml PO Q6H PRN PRN Reason: Indigestion Last Admin: 09/08/17 22:57 Dose: 30 ml Artificial Tears (Artificial Tears Ophth Soln) 1 drop EACH EYE TID [facility] Stop: 11/06/17 20:59 Last Admin: 09/10/17 10:17 Dose: 1 drop Famotidine (Pepcid) 20 mg PO DAILY [facility] Stop: 11/07/17 08:59 Last Admin: 09/10/17 10:16 Dose: 20 mg Fluoxetine HCl (Prozac) 20 mg PO DAILY [facility] PRN Reason: Protocol Stop: 11/07/17 08:59 Last Admin: 09/10/17 10:16 Dose: 20 mg Gabapentin (Neurontin) 100 mg PO TID [facility] Stop: 11/06/17 20:59 Last Admin: 09/10/17 10:15 Dose: 100 mg Dextrose/Sodium Chloride (D5-0.45ns) 1,000 mls @ 50 mls/hr IV .Q20H [facility] Stop: 11/06/17 19:37 Last Admin: 09/10/17 01:32 Dose: 50 mls/hr Metronidazole (Flagyl) 500 mg in 100 mls @ 100 mls/hr IV Q8H [facility] Stop: 11/07/17 13:59 Last Admin: 09/10/17 06:36 Dose: 100 mls/hr Ibuprofen (Advil) 200 mg PO BID PRN PRN Reason: Pain (Moderate) Stop: 11/06/17 22:44 Lactobacillus Rhamnosus (Culturelle 15b) 1 each PO DAILY [facility] Stop: 11/08/17 08:59 Last Admin: 09/10/17 10:13 Dose: 1 each Lamotrigine (Lamictal) 25 mg PO DAILY [facility] Stop: 11/07/17 08:59 Last Admin: 09/10/17 10:15 Dose: 25 mg Levothyroxine Sodium (Synthroid) 0.05 mg PO QDAC [facility] Stop: 11/07/17 07:29 Last Admin: 09/10/17 06:35 Dose: 0.05 mg Loratadine (Claritin) 10 mg PO DAILY PRN PRN Reason: ALLERGY ITCHING Stop: 11/06/17 19:12 Last Admin: 09/08/17 21:58 Dose: 10 mg Magnesium Hydroxide (Milk Of Magnesia) 30 ml PO DAILY PRN PRN Reason: Constipation Stop: 11/06/17 19:12 Metoprolol Succinate (Toprol Xl) 25 mg PO DAILY [facility] Stop: 11/07/17 08:59 Last Admin: 09/10/17 10:13 Dose: 25 mg Miscellaneous (Melatonin [Melatonin]) 6 mg PO HS PRN PRN Reason: Insomnia Miscellaneous (Vte Chemical Prophylaxis Screen/ Admission) 1 ea [facility] PRN PRN PRN Reason: PROTOCOL Stop: 11/07/17 11:04 Ondansetron HCl (Zofran) 4 mg IV Q6H PRN PRN Reason: Nausea / Vomiting Stop: 11/06/17 19:37 Last Admin: 09/07/17 22:59 Dose: 4 mg Melatonin 5mg Tab 1 PO HS [facility] Stop: 11/09/17 20:59 Polyethylene Glycol (Miralax) 17 gm PO DAILY [facility] Stop: 11/07/17 19:29 Last Admin: 09/10/17 10:17 Dose: 17 gm Sodium Phosphate (Fleet Enema) 135 ml RC Q48H PRN PRN Reason: IF MOM INEFFECTIVE Stop: 11/06/17 19:12 Assessment/Plan - Problem List Patient Problems: All Active Problems N/V, COUGH AND CONGESTION, WEAKNESS (Acute) Nutritional Asmnt/Malnutr-PDOC - Dietary Evaluation Malnutrition Findings (Please click <Entered> for more info): Nutritional Asmnt/Malnutrition Start: 09/08/17 08: 01 Text: Status: Complete Freq: Document 09/10/17 09:24 [email or web address] (Rec: 09/10/17 09:28 [email or web address]) Nutritional Asmnt/Malnutrition Patient General Information Nutritional Screening Moderate Risk Diagnosis abdominal pain, nausea, dizziness Pertinent Medical Hx/Surgical Hx hypothyroidism, HTN Subjective Information Pt kyrgyz speaking, eating 25 -100% of meals, most meals eats 100%. Sometimes confused. On restrictive diet for age. Current Diet Order/ Nutrition Support 2 gm Na Patient / S.O Not Indicated Pertinent Medications pepcid, culturelle, synthroid, flagyl, miralax Pertinent Labs 09/09 Na: 133 Nutritional Hx/Data Height 1.57 m Height (Calculated Centimeters) 157.5 Current Weight (lbs) 58.967 kg Weight (Calculated Kilograms) 59.0 Weight (Calculated Grams) 24391.0 [place] Body Weight 110 % [place] Body Weight 118 Body Mass Index (BMI) 23.8 Recent Weight Change No Weight Status Approriate GI Symptoms GI Symptoms None Last BM 09/09 Difficult in: None Skin Integrity/Comment: intact, no edema noted Current %PO Good (75-100%) Estimated Nutritional Goals BEE in Kcals: Using Current wt Calories/Kcals/Kg 25-30 Kcals Calculated 1075-6270 Protein: Using Current wt Protein g/k-1.2 Protein Calculated 59-71 g Fluid: ml 7187-3799 mL (1 ml/kcal) Nutritional Problem 1. Problem Problem altered nutrition related lab values Etiology restrictive diet Signs/Symptoms: Na: 133 Malnutrition Alert Is there a minimum of two criteria No selected? Query Text:Check all the applicable criteria. A minimum of two criteria are recommended for diagnosis of either severe or non-severe malnutrition. Malnutrition Related to Morbid Obesity Malnutrition related to morbid obesity No Intervention/Recommendation Comments 1. Liberalize diet to THELMA due to age. Expected Outcomes/Goals Expected Outcomes/Goals PO intake >50%, labs: WNL monitor wt, labs, skin, PO intake
--- NOTE | 2017-09-10 21:01 | Progress Notes ---
DATE: 09/10/2017 SUBJECTIVE: Chart reviewed. The patient interviewed. Also, discussed the patient's condition with the staff and reviewed records and labs. The patient is still anxious and is still in a depressed mood. The patient also complained of trouble sleeping at night, but staff reports that patient slept well last night. She also is still guarded and withdrawn. Otherwise, the patient is compliant with taking her medications with no side effects of medications. ASSESSMENT: The patient is still depressed, but less agitated. TREATMENT PLAN: Continue to monitor her behavior and her medications closely. Also, continue adjusting psychotropic medications and followup. [facility]# [id number]
[2017-09-10] MEDS: Acetaminophen 500 MG TAB PO PRN (22:49)
[2017-09-10] MEDS: Maalox 30 mL Cup PO PRN (22:58)
--- NOTE | 2017-09-11 01:25 | Consultation ---
DATE OF CONSULTATION: 09/10/2017 ORTHOPEDIC SURGERY CONSULTATION HISTORY OF PRESENT ILLNESS: The patient is an 87-year-old lady admitted to [facility] on 09/07/2017 of the Emergency Room with complaints of nausea and abdominal pain for several months. Because of complaints of right shoulder pain she had an x-ray which showed a dislocation of the right shoulder. I was called with orthopedic consultation regarding her right shoulder. PAST HISTORY: Additional findings on admission were ventral hernia, diverticulosis, history of gastric ulcer, hypertension, coronary artery disease, diabetes mellitus, hypothyroidism, history of pneumonia, dementia, glaucoma, weakness and lack of coordination. FAMILY HISTORY: Noncontributory. REVIEW OF SYSTEMS: No other systemic type complaints. EXAMINATION: The patient was examined in her hospital room at [facility]. When I went in to see her, she was eating her evening meal and I noted that she was using her right hand and arm quite normally to feed herself. I inquired whether she had any pain in her arm or shoulder, she said there was some pain in the right shoulder at times. She did not recall when or how she injured her shoulder. She can range the shoulder through better than 50% of normal movement and with help I could move it to 70-80% of movement with slight discomfort at the extreme. Neurologic function in the upper extremities normal. X-rays; I reviewed the images in the PACS dated 09/10/2017, right shoulder, there is a chronic inferior dislocation with a pseudarthrosis and some calcification within the capsule indicating chronicity. ORTHOPEDIC DIAGNOSIS: Chronic retained dislocation, right shoulder. RECOMMENDATIONS: This was out. His right shoulder is best left as it is it would be impossible to reduce the shoulder open or closed and there is great risk of injuring adjacent neurovascular structures. She has formed a pseudarthrosis for the shoulder and it functions quite normally for most of her activities of daily living and she has very little discomfort. She can continue using the shoulder as tolerated and does not require any specific treatment for this. Thank you for this interesting referral. [facility]# [id number]
[2017-09-11] MEDS: D5-0.45NS 1,000 ML IV SCH ×2 (02:44→06:24)
[2017-09-11] MEDS: metroNIDAZOLE 500mg/NS 100mL 500 MG/100 ML BAG IV SCH ×2 (06:24→13:52)
[2017-09-11] MEDS: Levothyroxine 0.05 Mg Tab PO SCH (06:31)
[2017-09-11] MEDS: Lactobacillus Rhamnosus GG 15 Billion CFU CAP.SPRINK PO SCH (08:16)
[2017-09-11] MEDS: POLYETHYLENE GLYCOL 3350 17 GM PACK PO SCH (08:16)
--- NOTE | 2017-09-11 10:27 | Progress Notes ---
DATE: 09/11/2017 SUBJECTIVE: Chart reviewed and the patient interviewed. Also, discussed the patient's condition with the staff and reviewed records and labs. The patient is calmer and less agitated. The patient also is still isolative and withdrawn and interacting minimally with others. The patient denies any thoughts of suicide or homicide. ASSESSMENT: The patient seems to be less depressed and is showing some improvement. TREATMENT PLAN: Continue current treatment and medications and continue to follow up. [facility]# [id number]
[2017-09-11] MEDS: Polyvinyl Alcohol Ophth Soln 15 mL Bottle EACH EYE SCH ×2 (10:57→13:53)
--- NOTE | 2017-09-11 12:24 | Internal Medicine Prog Note ---
Internal Medicine Subjective - Subjective Service Date: 09/11/17 Patient seen and examined:: with staff Patient is:: awake, verbal Per staff patient has:: no adverse event, tolerating meds Internal Medicine Objective - Results Result Diagrams: 09/09/17 06:30 09/09/17 06:30 Recent Labs: Laboratory Last Values WBC 5.5 Th/cmm (4.8-10.8) 09/09/17 06:30 RBC 3.32 Mil/cmm (3.80-5.20) L 09/09/17 06:30 Hgb 10.5 gm/dL (12-16) L 09/09/17 06:30 Hct 31.0 % (41.0-60) L 09/09/17 06:30 MCV 93.3 fl (81-100) 09/09/17 06:30 MCH 31.7 pg (27.0-31.0) H 09/09/17 06:30 MCHC Differential 34.0 pg (28.0-36.0) 09/09/17 06:30 RDW 11.9 % (11.5-20.0) 09/09/17 06:30 Plt Count 194 Th/cmm (150-400) 09/09/17 06:30 MPV 8.3 fl 09/09/17 06:30 Neutrophils % 47.0 % (40.0-80.0) 09/09/17 06:30 Lymphocytes % 33.0 % (20.0-50.0) 09/09/17 06:30 Monocytes % 13.2 % (2.0-10.0) H 09/09/17 06:30 Eosinophils % 6.6 % (0.0-5.0) H 09/09/17 06:30 Basophils % 0.2 % (0.0-2.0) 09/09/17 06:30 Sodium 133 mEq/L (136-145) L 09/09/17 06:30 Potassium 4.1 mEq/L (3.5-5.1) 09/09/17 06:30 Chloride 104 mEq/L (98-107) 09/09/17 06:30 Carbon Dioxide 23.8 mEq/L (21.0-31.0) 09/09/17 06:30 Anion Gap 9.3 (7.0-16.0) 09/09/17 06:30 BUN 20 mg/dL (7-25) 09/09/17 06:30 Creatinine 0.8 mg/dL (0.6-1.2) 09/09/17 06:30 Est GFR ( Amer) TNP 09/09/17 06:30 Est GFR (Non-Af Amer) TNP 09/09/17 06:30 BUN/Creatinine Ratio 25.0 09/09/17 06:30 Glucose 102 mg/dL (70-105) 09/09/17 06:30 Calcium 9.1 mg/dL (8.6-10.3) 09/09/17 06:30 Total Bilirubin 0.3 mg/dL (0.3-1.0) 09/09/17 06:30 AST 18 U/L (13-39) 09/09/17 06:30 ALT 12 U/L (7-52) 09/09/17 06:30 Alkaline Phosphatase 51 U/L (34-104) 09/09/17 06:30 Total Protein 5.7 gm/dL (6.0-8.3) L 09/09/17 06:30 Albumin 3.6 gm/dL (3.7-5.3) L 09/09/17 06:30 Globulin 2.1 gm/dL 09/09/17 06:30 Albumin/Globulin Ratio 1.7 (1.0-1.8) 09/09/17 06:30 Triglycerides 107 mg/dL (<150) 09/08/17 05:55 Cholesterol 213 mg/dL (<200) H 09/08/17 05:55 LDL Cholesterol Direct 146 mg/dL (75-193) 09/08/17 05:55 HDL Cholesterol 57 mg/dL (23-92) 09/08/17 05:55 Amylase 40 U/L (29-103) 09/07/17 14:35 Lipase 27 U/L (11-82) 09/07/17 14:35 TSH 6.51 uIU/ml (0.34-5.60) H 09/08/17 05:55 Urine Source RANDOM 09/07/17 13:30 Urine Color YELLOW 09/07/17 13:30 Urine Clarity CLEAR (CLEAR) 09/07/17 13:30 Urine pH 7.0 (4.6 - 8.0) 09/07/17 13:30 Ur Specific [place] <= 1.005 (1.005-1.030) 09/07/17 13:30 Urine Protein NEGATIVE mg/dL (NEGATIVE) 09/07/17 13:30 Urine Glucose (UA) NEGATIVE mg/dL (NEGATIVE) 09/07/17 13:30 Urine Ketones NEGATIVE mg/dL (NEGATIVE) 09/07/17 13:30 Urine Blood NEGATIVE (NEGATIVE) 09/07/17 13:30 Urine Nitrate NEGATIVE (NEGATIVE) 09/07/17 13:30 Urine Bilirubin NEGATIVE (NEGATIVE) 09/07/17 13:30 Urine Urobilinogen 0.2 E.U./dL (0.2 - 1.0) 09/07/17 13:30 Ur Leukocyte Esterase NEGATIVE (NEGATIVE) 09/07/17 13:30 Urine RBC NONE SEEN /hpf (0-5) 09/07/17 13:30 Urine WBC NONE SEEN /hpf (0-5) 09/07/17 13:30 Ur Epithelial Cells NONE SEEN /lpf (FEW) 09/07/17 13:30 Urine Bacteria NONE SEEN /hpf (NONE SEEN) 09/07/17 13:30 - Physical Exam Vitals and I&O: Vital Signs Temp 97.2 F 09/11/17 12:04 Pulse 58 09/11/17 12:04 Resp 17 09/11/17 12:04 BP 102/64 09/11/17 12:04 Pulse Ox 98 09/11/17 12:04 Intake & Output 09/10/17 09/11/17 09/11/17 18:59 06:59 18:59 Intake Total 100 2233.333 100 Output Total 700 Balance 100 1533.333 100 Weight (lbs) 128 lb Intake: Intake, IV Amount 100 1383.333 100 D5-0.45NS 1,000 ml @ 50 1183.333 mls/hr IV .Q20H [facility] Rx#: [id number] metroNIDAZOLE 500mg/NS 100 200 100 100mL 500 mg In 100 ml @ 100 mls/hr IV Q8H [facility] Rx# :[id number] Oral 850 Output: Urine 700 Other: # Voids 2 # Bowel Movements 0 Stool Characteristics Soft Active Medications: Current Medications Acetaminophen (Tylenol Extra Strength) 500 mg PO Q4H PRN PRN Reason: MILD PAIN Stop: 11/06/17 19:12 Last Admin: 09/07/17 22:58 Dose: 500 mg Al Hydrox/Mg Hydrox/Simethicone (Maalox) 30 ml PO Q6H PRN PRN Reason: Indigestion Last Admin: 09/10/17 22:58 Dose: 30 ml Artificial Tears (Artificial Tears Ophth Soln) 1 drop EACH EYE TID [facility] Stop: 11/06/17 20:59 Last Admin: 09/11/17 10:57 Dose: 1 drop Famotidine (Pepcid) 20 mg PO DAILY [facility] Stop: 11/07/17 08:59 Last Admin: 09/11/17 08:16 Dose: 20 mg Fluoxetine HCl (Prozac) 20 mg PO DAILY [facility] PRN Reason: Protocol Stop: 11/07/17 08:59 Last Admin: 09/11/17 08:15 Dose: 20 mg Gabapentin (Neurontin) 100 mg PO TID [facility] Stop: 11/06/17 20:59 Last Admin: 09/11/17 08:16 Dose: 100 mg Dextrose/Sodium Chloride (D5-0.45ns) 1,000 mls @ 50 mls/hr IV .Q20H [facility] Stop: 11/06/17 19:37 Last Admin: 09/11/17 06:24 Dose: 50 mls/hr Metronidazole (Flagyl) 500 mg in 100 mls @ 100 mls/hr IV Q8H [facility] Stop: 11/07/17 13:59 Last Infusion: 09/11/17 07:24 Dose: Infused Ibuprofen (Advil) 200 mg PO BID PRN PRN Reason: Pain (Moderate) Stop: 11/06/17 22:44 Lactobacillus Rhamnosus (Culturelle 15b) 1 each PO DAILY [facility] Stop: 11/08/17 08:59 Last Admin: 09/11/17 08:16 Dose: 1 each Lamotrigine (Lamictal) 25 mg PO DAILY [facility] Stop: 11/07/17 08:59 Last Admin: 09/11/17 08:15 Dose: 25 mg Latanoprost (Xalatan 0.005% Ophth Soln) 1 drop EACH EYE HS [facility] Stop: 11/09/17 20:59 Last Admin: 09/10/17 22:51 Dose: Not Given Levothyroxine Sodium (Synthroid) 0.05 mg PO QDAC [facility] Stop: 11/07/17 07:29 Last Admin: 09/11/17 06:31 Dose: 0.05 mg Loratadine (Claritin) 10 mg PO DAILY PRN PRN Reason: ALLERGY ITCHING Stop: 11/06/17 19:12 Last Admin: 09/08/17 21:58 Dose: 10 mg Magnesium Hydroxide (Milk Of Magnesia) 30 ml PO DAILY PRN PRN Reason: Constipation Stop: 11/06/17 19:12 Metoprolol Succinate (Toprol Xl) 25 mg PO DAILY [facility] Stop: 11/07/17 08:59 Last Admin: 09/11/17 08:16 Dose: 25 mg Miscellaneous (Melatonin [Melatonin]) 6 mg PO HS PRN PRN Reason: Insomnia Miscellaneous (Vte Chemical Prophylaxis Screen/ Admission) 1 ea [facility] PRN PRN PRN Reason: PROTOCOL Stop: 11/07/17 11:04 Ondansetron HCl (Zofran) 4 mg IV Q6H PRN PRN Reason: Nausea / Vomiting Stop: 11/06/17 19:37 Last Admin: 09/11/17 06:35 Dose: 4 mg Melatonin 5mg Tab 1 PO HS [facility] Stop: 11/09/17 20:59 Last Admin: 09/10/17 22:50 Dose: 1 Polyethylene Glycol (Miralax) 17 gm PO DAILY [facility] Stop: 11/07/17 19:29 Last Admin: 09/11/17 08:16 Dose: 17 gm Sodium Phosphate (Fleet Enema) 135 ml RC Q48H PRN PRN Reason: IF MOM INEFFECTIVE Stop: 11/06/17 19:12 General: alert HEENT: NC/AT, PERRLA Neck: Supple Lungs: CTAB Cardiovascular: RRR, without murmur Abdomen: non-tender, non-distended, positive bowel sound Internal Medicine Assmt/Plan - Assessment Assessment: Current Active Problems Problem Status Onset N/V, COUGH AND CONGESTION, WEAKNESS Acute abdominal pain intractable nausea - Plan Plan: ivf for hydration empiric ivabx continue current orders Nutritional Asmnt/Malnutr-PDOC - Dietary Evaluation Malnutrition Findings (Please click <Entered> for more info): Nutritional Asmnt/Malnutrition Start: 09/08/17 08: 01 Text: Status: Complete Freq: Document 09/10/17 09:24 [email or web address] (Rec: 09/10/17 09:28 [email or web address]) Nutritional Asmnt/Malnutrition Patient General Information Nutritional Screening Moderate Risk Diagnosis abdominal pain, nausea, dizziness Pertinent Medical Hx/Surgical Hx hypothyroidism, HTN Subjective Information Pt canadian speaking, eating 25 -100% of meals, most meals eats 100%. Sometimes confused. On restrictive diet for age. Current Diet Order/ Nutrition Support 2 gm Na Patient / S.O Not Indicated Pertinent Medications pepcid, culturelle, synthroid, flagyl, miralax Pertinent Labs 09/09 Na: 133 Nutritional Hx/Data Height 5 ft 2 in Height (Calculated Centimeters) 157.5 Current Weight (lbs) 130 lb Weight (Calculated Kilograms) 59.0 Weight (Calculated Grams) 39847.0 [place] Body Weight 110 % [place] Body Weight 118 Body Mass Index (BMI) 23.8 Recent Weight Change No Weight Status Approriate GI Symptoms GI Symptoms None Last BM 09/09 Difficult in: None Skin Integrity/Comment: intact, no edema noted Current %PO Good (75-100%) Estimated Nutritional Goals BEE in Kcals: Using Current wt Calories/Kcals/Kg 25-30 Kcals Calculated 8736-7598 Protein: Using Current wt Protein g/k-1.2 Protein Calculated 59-71 g Fluid: ml 2739-4775 mL (1 ml/kcal) Nutritional Problem 1. Problem Problem altered nutrition related lab values Etiology restrictive diet Signs/Symptoms: Na: 133 Malnutrition Alert Is there a minimum of two criteria No selected? Query Text:Check all the applicable criteria. A minimum of two criteria are recommended for diagnosis of either severe or non-severe malnutrition. Malnutrition Related to Morbid Obesity Malnutrition related to morbid obesity No Intervention/Recommendation Comments 1. Liberalize diet to THELMA due to age. Expected Outcomes/Goals Expected Outcomes/Goals PO intake >50%, labs: WNL monitor wt, labs, skin, PO intake
--- NOTE | 2017-09-20 12:01 | Discharge Summary ---
DATE OF DISCHARGE: 09/11/2017 HOSPITAL COURSE: An 87-year-old female patient, a resident of ____, history of abdominal pain and nausea, vomiting and the patient also complaining of left shoulder pain and the patient was admitted with the initial diagnosis of severe abdominal pain, intractable nausea, vomiting, history of pneumonia, history of weakness, history of coronary artery disease, bradycardia, GERD, and right shoulder pain and the patient was evaluated and had a GI consultation and also had orthopedic consultation for right shoulder pain. She had MRI showed displaced right shoulder dislocation, but it was old dislocation and the final diagnoses abdominal pain improved and nausea and vomiting improved. Dizziness improved. Severe weakness. History of osteoarthritis, history of right shoulder dislocation old, history of coronary artery disease, bradycardia ____. The patient was in stable condition. On 09/11/2017, the patient was discharged back to ____. CONDITION AT THE TIME OF DISCHARGE: Stable. PROGNOSIS: Guarded. MEDICATIONS: See the reconciliation sheet. ACTIVITY: As tolerated. [facility] the [facility]. JOB# [id number]
== END 2017-09-11 14:30 | disposition home or self-care (01) | DRG 392 ==
LOC: ER 12:43 → MSI 18:00
PROVIDERS: ADMIT Internal Medicine; ATTEND Internal Medicine
DX: K59.00 Constipation, unspecified (principal); E11.9 Type 2 diabetes mellitus without complications; F33.9 Major depressive disorder, recurrent, unspecified; F03.90 Unspecified dementia, unspecified severity, without behavioral disturbance, psychotic disturbance, mood disturbance, and anxiety; R10.9 Unspecified abdominal pain; I25.10 Atherosclerotic heart disease of native coronary artery without angina pectoris; K57.90 Diverticulosis of intestine, part unspecified, without perforation or abscess without bleeding; K21.9 Gastro-esophageal reflux disease without esophagitis; Z66 Do not resuscitate; K46.9 Unspecified abdominal hernia without obstruction or gangrene; F41.9 Anxiety disorder, unspecified; G47.00 Insomnia, unspecified; I10 Essential (primary) hypertension; E03.9 Hypothyroidism, unspecified; S43.004A Unspecified dislocation of right shoulder joint, initial encounter; H40.9 Unspecified glaucoma; Z88.0 Allergy status to penicillin; Z88.5 Allergy status to narcotic agent
CPT/HCPCS: 36415-UA; 72170-TC; 73030-TC-RT; 73562-TC-LT; 73562-TC-RT; 76700-TC; 80048-TC; 80053-TC; 80061-TC; 81001-TC; 82150-TC; 83690-TC; 84443-TC; 85025-TC; 90799; 96374; J2405; J7030; Q9967; Z7610